=== PATIENT | male | born 1990 | race Caucasian/White ===

== ENCOUNTER 2023-01-29 02:21 | Emergency (ER) | payer BC, SELFPAY ==
[2023-01-29 02:29] VITALS: BP 133/74; PULSE 68; RESP 18; TEMP 36.7; O2SAT 99; BMI 25.8
--- NOTE | 2023-01-29 02:42 | ED.GENADULT ---
HPI - General Adult General Date Seen: 01/29/23 Chief complaint: Ear/Nose/Throat Problem Stated complaint: Right side ear pain Time Seen by Provider: 01/29/23 02:31 Source: patient Mode of arrival: ambulatory Limitations: no limitations History of Present Illness HPI narrative: Patient is a 32-year-old male seen a few days ago with upper respiratory infection who presents to the ER around 2:00 a.m. for right ear pain which started a couple of hours prior to presentation. He has not taken any medications at home. No drainage, fevers, difficulty with hearing. He does note ongoing mild congestion although it is improving. Throat is improved. No significant cough and no difficulty breathing. Denies medical history, does not smoke. No allergies. Related Data Home Medications Medication Instructions Recorded Confirmed No Known Home Medications 01/29/23 01/29/23 Allergies Allergy/AdvReac Type Severity Reaction Status Date / Time No Known Drug Allergies Allergy Verified 01/29/23 02:31 [facility] Medical History (Updated 01/29/23 @ 02:44 by Yuli Powers MD) URI (upper respiratory infection) ?J06.9 - Acute upper respiratory infection, unspecified (ICD-10) Surgical History (Updated 01/29/23 @ 02:35 by Kevin Chairez RN) History of Achilles tendon repair ?Z98.890 - Other specified postprocedural states (ICD-10) Social History Smoking Status: Never smoker Second hand tobacco smoke exposure: No How often do you have a drink containing alcohol: never How often do you have six or more drinks on one occasion: Never AUDIT-C Alcohol total score: 0 Non-prescribed substance use: denies use Exam Narrative: Exam Narrative: Vital signs as noted above. In general, an alert, well-appearing patient. Head: Normocephalic, atraumatic. Eyes: Pupils are equal reactive. Extraocular movements are full. Conjunctivae are normal. ENT: Mucous membranes are moist. Throat is normal. On the right he has mild erythema and fluid behind the eardrum but landmarks are seen. The left TM is normal. Neck: Supple without lymphadenopathy. Neurologic: Patient is alert and oriented to person and place. Speech is fluent. Face is symmetric. Moves all extremities equally. Affect: Normal. Skin: Warm and dry. Well perfused. Const: Vital Signs, click to edit/add: Vital Signs - 24 hr 01/29/23 02:29 01/29/23 02:45 01/29/23 02:45 Temperature 98.1 F 98.1 F 98.1 F Pulse Rate [Right Pulse Oximeter] 68 68 Respiratory Rate 18 18 Blood Pressure [Ri ght Upper Arm] 133/74 133/74 Pulse Oximetry 99 Oxygen Delivery Me thod Room Air 01/29/23 02:48 Temperature 98.1 F Pulse Rate [Right Pulse Oximeter] 68 Respiratory Rate 18 Blood Pressure [Ri ght Upper Arm] 133/74 Pulse Oximetry 99 Oxygen Delivery Me thod Room Air Documenting provider has reviewed patient's vital signs: yes Course Course Hospital Course: Discussed with him that at this time his exam would suggest a serous otitis. Antibiotics are unlikely to be helpful at this point, I would expect that his symptoms will improve over the next few days but if he in fact worsens instead he should be seen for re-evaluation. If at any time he has severe pain, fevers, drainage or other acute changes, return to the ER. Given ibuprofen here, recommend ibuprofen plus or minus Tylenol at home for pain. Vital Signs Vital signs: Initial Vital Signs Temperature 98.1 F 01/29/23 02:29 Temperature Source Temporal Artery Scan 01/29/23 02:29 Pulse Rate 68 01/29/23 02:29 Respiratory Rate 18 01/29/23 02:29 Blood Pressure 133/74 01/29/23 02:29 Blood Pressure Mean 93 01/29/23 02:29 Blood Pressure Position Sitting 01/29/23 02:29 Pulse Oximetry 99 01/29/23 02:29 Oxygen Delivery Method Room Air 01/29/23 02:29 Vital Signs Temperature 98.1 F 01/29/23 02:29 Pulse Rate 68 01/29/23 02:29 Respiratory Rate 18 01/29/23 02:29 Blood Pressure 133/74 01/29/23 02:29 Pulse Oximetry 99 01/29/23 02:29 Oxygen Delivery Method Room Air 01/29/23 02:29 Temperature 98.1 F 01/29/23 02:48 Pulse Rate 68 01/29/23 02:48 Respiratory Rate 18 01/29/23 02:48 Blood Pressure 133/74 01/29/23 02:48 Pulse Oximetry 99 01/29/23 02:48 Oxygen Delivery Method Room Air 01/29/23 02:48 Discharge Plan Discharge Clinical Impression: Acute serous otitis media Patient Disposition: Home, Self-Care Condition: Stable Instructions: Fluid In The Ear (Serous Otitis Media) (ED) Additional Instructions: For severe uncontrolled pain, high fevers, drainage or other acute worsening, return to the ER. Otherwise, follow up in clinic in a few days if symptoms are worsening rather than improving. Prescriptions: No Action No Known Home Medications Stand Alone Forms: [employer] Info Instructions
[2023-01-29 02:45] VITALS: BP 133/74; PULSE 68; RESP 18; TEMP 36.7
[2023-01-29] MEDS: IBUPROFEN 200 MG TABLET 400 MG PO (02:45)
[2023-01-29 02:48] VITALS: BP 133/74; PULSE 68; RESP 18; TEMP 36.7; O2SAT 99
== END 2023-01-29 02:53 | disposition home or self-care (01) ==
LOC: ED 02:51
PROVIDERS: Emergency Provider Emergency Medicine
DX: H65.91 Unspecified nonsuppurative otitis media, right ear (principal)
CPT/HCPCS: 99282; 99283; A9270